=== PATIENT | male | born 1970 | race Caucasian/White ===

== ENCOUNTER 2024-06-26 05:12 | Emergency (ER) | payer OTHER, SELFPAY ==
[2024-06-26 05:14] VITALS: BP 147/92; PULSE 110; RESP 16; TEMP 36.6; O2SAT 96; BMI 53.1
--- NOTE | 2024-06-26 05:27 | CT_ITS ---
PROCEDURE INFORMATION: Exam: CT Abdomen And Pelvis With Contrast Exam date and time: 06/26/2024 5:57 AM Age: 53 years old Clinical indication: Pain; Other: Genital region; Additional info: Infection of gentials, R/O nsti TECHNIQUE: Imaging protocol: Computed tomography of the abdomen and pelvis with contrast. Radiation optimization: All CT scans at this facility use at least one of these dose optimization techniques: automated exposure control; mA and/or kV adjustment per patient size (includes targeted exams where dose is matched to clinical indication); or iterative reconstruction. Contrast material: ISOVUE; Contrast volume: 75 ml; Contrast route: IV; COMPARISON: No relevant prior studies available. FINDINGS: Lungs: Lung bases are clear as visualized. Heart: Base of heart is unremarkable as visualized. Liver: Normal. No mass. Gallbladder and biliary ducts: Normal. No calcified stones. No ductal dilation. Pancreas: Atrophy of the pancreas. Spleen: Normal. No splenomegaly. Adrenal glands: Normal. No mass. Kidneys and ureters: Mild stranding and inflammatory change adjacent the bilateral renal pelves and renal cortices. Stomach and bowel: Unremarkable. No obstruction. No mucosal thickening. Appendix: No evidence of appendicitis. Intraperitoneal space: Unremarkable. No free air. No significant fluid collection. Vasculature: Unremarkable. No abdominal aortic aneurysm. Lymph nodes: Bilateral prominent inguinal lymph nodes, likely reactive. Urinary bladder: Unremarkable as visualized. Reproductive: Simple attenuating left paratesticular fluid seen within the scrotal sac. There is scrotal wall thickening and inflammatory change about the buried penis. Inflammatory change and cutaneous thickening is seen in the prominent fat pannus adjacent the scrotal sac and penis. There is no indication of gas. Bones/joints: Unremarkable. No acute fracture. Soft tissues: See Reproductive finding. IMPRESSION: 1. Cellulitis of the abdominal anterior fat pannus adjacent the buried penis and scrotal sac. Inflammatory change/cellulitis appears to extend into the left scrotal soft tissues. No free air to suggest gas-forming organism at this time, early Ne's gangrene can not be entirely excluded. 2. Reactive left hydrocele is present given internal attenuation below that of 20 Hounsfield units, however an early hydrocele is not entirely excluded. Consider scrotal ultrasound for further assessment. 3. Reactive inguinal lymph nodes. 4. Possible inflammatory change of the kidneys, correlate with clinical signs and symptoms upper urinary tract infection.
[2024-06-26] MEDS: VANCOMYCIN CONSULT REQUEST 1 EACH NOTAPPLIC (05:30)
--- NOTE | 2024-06-26 05:31 | HMH.EDGENADL ---
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, Acidosis, lactic, Hyperglycemia, Hyponatremia Stand Alone Forms Stand Alone Forms: Transfer Record - ED Print Language Print Language: Yoruba Discharge ED Provider: Anibal Zhou General Adult HPI General Chief complaint: Urogenital-Male Stated complaint: swelling pubic area Time Seen by Provider: 06/26/24 05:16 History of Present Illness HPI narrative: 53-year-old male known type II diabetic on metformin who reports he has no other chronic medical conditions but also is not much one for going to the doctor so has not seen a doctor in a long time presents to the ER for complaints of genital swelling. Patient reports 3 days ago he noticed what he thought was a small ingrown hair and tried to bust it . 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 He states he thinks it continued being irritated with his work and pants rubbing on it so it continued to get worse. He reports calling his doctor to try and get an appointment and they were going to be able to get him in on Friday but he states he cannot wait that long. He has discomfort that he describes as being above the penis. Family at bedside is concerned that it is more than just an ingrown hair. Patient denies fevers, chills, chest pain, difficulty breathing, headache, dizziness, abdominal pain, nausea, vomiting, diarrhea, constipation. He states he is able to urinate and have bowel movements normally despite the swelling. He denies any other known injury or trauma to the area. Patient states his only daily medication is metformin, no known drug allergies. Related Data Allergies Allergy/AdvReac Type Severity Reaction Status Date / Time No Known Allergies Allergy Verified 06/26/24 05:35 [facility] Disclaimer: The information contained in this section may have been updated after the patient was seen, as this information can be updated by other users. Social History Smoking Status: Current every day smoker alcohol intake: never current occupational status: employed Travel in the last 8 weeks: None ROS Obtained: Yes Systems reviewed as appropriate & no additional complaints except as documented per HPI Physical Exam General General appearance: alert, in no apparent distress and obese Head Head exam: atraumatic and normocephalic Eye Eye exam: Present PERRL and EOMI ENT ENT exam: Present mucous membranes moist Neck Neck exam: Present normal inspection and full ROM Chest Chest inspection: Present symmetric chest wall rise Respiratory Respiratory exam: Present normal lung sounds bilaterally; Absent respiratory distress, wheezes or stridor Cardiovascular Cardiovascular exam: Present normal rhythm and tachycardia (Mild tachycardia on arrival) Abdominal Exam Abdominal exam: Present soft; Absent distention or tenderness exam: Present scrotal swelling, normal testicular lie and other (Unable to visualize the penis, it is obscured by subcutaneous fat, appears involuted, urine is leaking from the hole where the penis is, yeast present in this area); Absent normal inspection Expanded Exam exam: Present lesions (2 small areas of open wound on the area of the left mons pubis, no purulence but malodorous), induration (Erythema and induration involves the entire mons pubis which is significantly swollen, also involves the scrotum), erythema and other (Admitted the induration and erythema, on the left mons pubis where patient has 2 areas of small open wound there is a more well-defined mass that feels as though it extends into the deep subcutaneous tissues, no obvious fluctuance; no crepitus) Extremities Exam Extremities exam: Present full ROM and normal capillary refill; Absent edema or calf tenderness Neurological Exam Neurological exam: Present alert and oriented X3; Absent motor sensory deficit Psychiatric Psychiatric exam: Present normal affect and normal mood Skin Skin exam: Present warm and dry Medical Decision Making Medical Records Screening: Per USPSTF and CDC recommendations, given the prevalence of disease in our region, it is our hospital?s policy to screen for HIV and viral Hepatitis for all patients aged 18 and over and those with ongoing risk factors. Kasi Inquiry Pt receiving controlled substance: No Vital Signs: 06/26/24 05:14 06/26/24 05:35 Temperature 97.9 F Temperature Source Oral Pulse Rate 98 H Pulse Rate [Left] 110 H Respiratory Rate 16 14 Blood Pressure 142/75 H Blood Pressure [Right Arm] 147/92 H Blood Pressure Mean [Right Arm] 110 Blood Pressure Position Supine 02 Sat by Pulse Oximetry 96 97 Oxygen Delivery Method Room Air Room Air Lab Data Lab Results 06/26/24 05:26: WBC 25.4 H*, RBC 5.24, Hgb 14.8, Hct 43.8, MCV 83.6, MCH 28.2, MCHC 33.8, RDW 12.9, Plt Count 400, MPV 9.4, Neut % (Auto) 74.0, Lymph % (Auto) 12.3, [place] % (Auto) 11.5 H, Eos % (Auto) 0.2, Baso % (Auto) 0.5, Neut # (Auto) 18.8 H, Lymph # (Auto) 3.1, [place] # (Auto) 2.9 H, Eos # (Auto) 0.1, Baso # (Auto) 0.1, Total Counted 100, Neutrophils % (Manual) 79 H, Lymphocytes % (Manual) 17, Monocytes % (Manual) 3, Eosinophils % (Manual) 1, Platelet Estimate Normal, RBC Morphology Normal, PT 12.4, INR 1.12 H, Sodium 125 L, Potassium 3.8, Chloride 91 L, Carbon Dioxide 20 L, Anion Gap 17.8 H, BUN 11, Creatinine 0.80, Estimated Creat Clear 106, Estimated GFR 102, Est GFR ( Amer) 123, Glucose 466 H*, Lactate 2.1, Calcium 9.1, Total Bilirubin 1.1, AST 33, ALT 43, Alkaline Phosphatase 169 H, C-Reactive Protein 138.5 H, Total Protein 8.3 H, Albumin 4.2, Globulin 4.1 H, Albumin/Globulin Ratio 1.0 L, Acetone Level None detected 06/26/24 05:27: VBG pH 7.40, VBG pCO2 33.6 L, VBG pO2 69.8 H, VBG HCO3 20.1 L, VBG Total CO2 21.1 L, VBG O2 Saturation 94.6 H, VBG Base Excess -4.8 L, VBG Lactic Acid 2.4 H 06/26/24 05:26 06/26/24 05:26 Orders (Tests/Meds): ED MEDICATIONS Generic Name Dose Route Start Last Admin Trade Name Freq PRN Reason Stop Dose Admin Vancomycin HCl 2,500 mg/ 500 mls @ 250 mls/hr 06/26/24 05:45 Sodium Chloride IV 06/26/24 07:44 ONCE ONE Miscellaneous 1 each 06/26/24 05:30 06/26/24 05:30 Vancomycin Consult Request NOTAPPLIC 07/26/24 05:29 1 each [facility]SULT [facility] Administration Discontinued Medications Generic Name Dose Route Start Last Admin Trade Name Adam PRN Reason Stop Dose Admin Acetaminophen 1,000 mg 06/26/24 05:57 06/26/24 06:27 Acetaminophen 1,000mg/100ml Vial IV 06/26/24 05:58 1,000 mg ONCE ONE Administration Piperacillin Sod/Tazobactam 100 mls @ 200 mls/hr 06/26/24 05:23 06/26/24 05:45 Sod 4.5 gm/ Sodium Chloride IV 06/26/24 05:52 200 mls/hr ONCE ONE Administration Clindamycin Phosphate 900 mg in 50 mls @ 100 mls/hr 06/26/24 05:25 06/26/24 06:05 Clindamycin 900mg/50ml D5w Premix IV 06/26/24 05:54 100 mls/hr ONCE ONE Administration Lactated Ringer's 1,000 mls @ 999 mls/hr 06/26/24 05:27 06/26/24 05:38 Lactated Ringer's 1000 Ml Bag IV 06/26/24 06:27 999 mls/hr .Q1H1M ONE Administration Iopamidol 75 ml 06/26/24 05:57 06/26/24 06:00 Iopamidol-370 (76%);100ml Bottle IV 06/26/24 05:58 75 ml ONCE ONE Administration Sodium Chloride 10 ml 06/26/24 05:57 06/26/24 06:00 Sodium Chloride 0.9% 10ml Syr (Rad Only) IV 06/26/24 05:58 10 ml ONCE ONE Administration ORDERS Category Date Time Status CT abdomen pelvis w con Stat Cat Scan 06/26/24 05:27 Completed Acetone, Serum (Rapid) Stat Lab 06/26/24 05:26 Completed CBC w/Auto Diff [Complete Blood Count Auto Diff] Stat Lab 06/26/24 05:26 Completed CMP [Comprehensive Metabolic Panel] Stat Lab 06/26/24 05:26 Completed CRP [C-Reactive Protein] Stat Lab 06/26/24 05:26 Completed HIV Combo Routine Lab 06/26/24 05:26 Received Hepatitis C Ab Qual. W/ RFX Routine Lab 06/26/24 05:26 Received Lactic Acid Stat Lab 06/26/24 05:26 Completed Osmolality Stat Lab 06/26/24 05:26 Received PT INR [Prothrombin Time INR] Stat Lab 06/26/24 05:26 Completed Blood Culture Stat Micro 06/26/24 05:40 Received VBG [Venous Blood Gas] Stat RT 06/26/24 05:27 Completed Tissue Perfus/Sepsis Re-Eval Sepsis Re-Evaluation Performed: Yes Date Performed: 06/26/24 Time Performed: 06:42 Medical Decision Narrative: In summary, this 53-year-old male with known type 2 diabetes likely not at goal therapy given his avoidance of the medical system presents to the emergency department today with swelling, pain, wound in the pubic area. On initial evaluation patient is mildly tachycardic but otherwise hemodynamically stable, afebrile, ambulated independently into the ER, exam is notable for significant swelling, induration, erythema, heat, involving the mons pubis, tissue surrounding the penis, and scrotum. There are 2 very small wounds over the mons pubis and deeper palpable swelling in this area as well, no obvious crepitus. Differential diagnosis includes but is not limited to abscess, cellulitis, necrotizing soft tissue infection, Ne's gangrene, electrolyte abnormality, hyperglycemia, lactic acidosis. While I am reassured that patient does not have severe pain, I do have high concern for possible NSTI given the appearance and rapid progression of this area as well as his likely poorly controlled diabetes. He was started on broad-spectrum antibiotics including vancomycin, Zosyn, and clindamycin empirically. He is also receiving small volume fluid bolus to help with tachycardia. I would not be surprised if the patient has kidney dysfunction or unknown cardiac problems due to his avoidance of the medical system so I do not want to fluid overload him especially since he has good blood pressure at this time. Ruling out the most morbid conditions drove my assessment, serum labs and CT imaging have been ordered. Patient is also receiving IV acetaminophen. Labs personally reviewed demonstrate significant leukocytosis WBC 25.4, no anemia, platelets normal, PT/INR nonactionable, VBG with normal pH, lactic on VBG is elevated at 2.4, lactic on chemistry normal at 2.1. Patient is receiving IV fluids. Patient has hyponatremia and hypochloremia in the setting of hyperglycemia. Sodium corrected for his hyperglycemia is 134. Given his electrolyte derangements and hyperglycemia, increased concern for possible DKA/HHS. He does not meet criteria for HHS, I added acetone and osmolality to patient's workup for further evaluation though he is known to not be in DKA given his pH is normal. Acetone negative. CT imaging personally interpreted demonstrate large area of cellulitis consistent with the areas of erythema and induration on exam, no obvious fluid collection, I do not appreciate air on CTA. I reached out to ad radiologist to have them escalate the study for priority read given concern for NSTI. Radiology read also does not appreciate free air but report states they cannot rule out Ne's, patient also has likely reactive hydrocele, they also call possible evidence of urinary infection, urine sample has not been collected at this time since patient does not have a way for us to collect a clean-catch due to his buried penis, and cannot visualize the penis for a cath sample. He is already being adequately covered with the antibiotics that have been administered for urinary tract infection. With the results of the CT, I immediately reached out to [facility]. We also called for weather check for a possible helicopter transfer. I spoke with Dr. Grimes in the transfer center and after reviewing patient's labs and presentation, she graciously accepted the patient for ED to ED transfer to [facility] ER for concern of early Ne's gangrene. Air methods returned our call and had to decline the patient secondary to his weight and to the weather. Patient will go via ALS ambulance with continued IV fluids and antibiotics. Patient transferred in serious but currently stable condition. Critical Care Critical Care Time Critical Care Time: Yes Attestation: On 06/26/24, the high probability of a clinically significant, sudden or life threatening deterioration of the following system(s) (hemodynamic) required my full and direct attention, intervention and personal management. The time I documented below is in addition to time spent performing reported procedures but includes the following listed in this critical care notation. Total Time Total Critical Care Time: 35
[2024-06-26 05:35] VITALS: BP 142/75; PULSE 98; RESP 14; O2SAT 97
[2024-06-26 05:36] LABS: VBG Base Excess -4.8 mmol/L (-2.4-2.3); VBG HCO3 20.1 mmol/L (23-30); VBG Oxygen Saturation 94.6 % (50-70); VBG PCO2 33.6 mmol/L (35-51); VBG PO2 69.8 mmol/L (28-40); VBG Total CO2 21.1 mmol/L (23-27)
[2024-06-26 05:37] LABS: Lactate Venous 2.4 mmol/L (0.4-2.0)
[2024-06-26] MEDS: LACTATED RINGERS 1000ML 1,000 ML 999 ML IV (05:38)
--- NOTE | 2024-06-26 05:40 | PC.NURSE ---
phlebotomy at the bedside to obtain second set of cultures. dye penetrant testing technician as well to explain CT procedure
[2024-06-26 05:43] LABS: Basophils # 0.1 K/mm3 (0-0.2); Basophils % 0.5 % (0.1-2.0); Eosinophils # 0.1 K/mm3 (0.0-0.4); Eosinophils % 0.2 % (0.1-12.0); Hematocrit 43.8 % (42.0-52.0); Hemoglobin 14.8 g/dL (14.1-18.0); Lymphocytes # 3.1 K/mm3 (0.7-4.5); Lymphocytes % 12.3 % (10-50); Mean Corpuscular HGB Conc 33.8 g/dL (31.8-35.4); Mean Corpuscular Hemoglobin 28.2 pg (27.0-31.2); Mean Corpuscular Volume 83.6 fl (80-94); Mean Platelet Volume 9.4 fl (7.4-10.4); Monocytes # 2.9 K/mm3 (0.1-1.0); Monocytes % 11.5 % (1.7-9.3); Neutrophils # 18.8 K/mm3 (1.8-7.8); Platelet Count 400 K/mm3 (142-424); Red Blood Count 5.24 M/mm3 (4.60-6.20); Red Cell Distribution Width 12.9 % (11.5-17.5); White Blood Count 25.4 K/mm3 (4.8-10.8)
[2024-06-26 05:44] LABS: Albumin Level 4.2 g/dl (3.5-5.0); Chloride 91 mmol/L (98-107); Potassium 3.8 mmoL/L (3.5-5.1); Sodium 125 mmol/L (136-145)
[2024-06-26] MEDS: PIPERACILLIN/TAZO 4.5 GM in 0.9 % SODIUM CHLORIDE 100 ML IV (05:45)
[2024-06-26 05:47] LABS: Alanine Aminotransferase 43 U/L (12-78); Alkaline Phosphatase 169 U/L (38-126); Anion Gap 17.8 mEq/L (5-15); Aspartate Amino Transferase 33 U/L (17-59); Bilirubin,Total 1.1 mg/dl (0.2-1.3); Blood Urea Nitrogen 11 mg/dl (9-20); Calcium 9.1 mg/dl (8.4-10.2); Carbon Dioxide 20 mmol/L (22.0-30.0); Creatinine Clearance Estimated 106 mL/min (50-200); Estimated Glomerular Filt Rate 102 ml/min (>60); GFR (African American) 123 ML/MIN (>60); Globulin 4.1 g/dL (1.3-3.2); MANUAL DIFFERENTIAL MANUAL DIFFERENTIAL (MANUAL DIFF); Total Protein,Serum 8.3 g/dl (6.3-8.2)
[2024-06-26 05:48] LABS: Glucose 466 mg/dl (74-100); Lactic Acid 2.1 mmol/L (0.7-2.1)
[2024-06-26 05:49] LABS: INR 1.12 (0.9-1.1); Prothrombin Time 12.4 seconds (10.1-12.5)
--- NOTE | 2024-06-26 05:52 | PC.NURSE ---
pt taken to ct scan at this time
[2024-06-26] MEDS: IOPAMIDOL-370 (76%);100ML BOTTLE 75 ML IV (06:00)
[2024-06-26] MEDS: SODIUM CHLORIDE 0.9% 10ML SYR (RAD ONLY) 10 ML IV (06:00)
[2024-06-26 06:02] LABS: Acetone, Serum (Rapid) None Detected (None Detect)
[2024-06-26] MEDS: CLINDAMYCIN PHOSPHATE/D5W 900 MG/50 ML PIGGYBACK 100 MG IV (06:05)
--- NOTE | 2024-06-26 06:12 | PC.NURSE ---
provider at the bedside updating pt on POC
[2024-06-26 06:13] LABS: C-Reactive Protein 138.5 mg/L (0-4)
[2024-06-26 06:19] LABS: Eosinophils % 1 % (0-3); Lymphocytes % 17 % (10-50); Monocytes % 3 % (2-9); Neutrophils % 79 % (42-76); Platelet Estimate Normal; RBC Morphology Normal; Total Cells Counted 100
[2024-06-26] MEDS: ACETAMINOPHEN 1,000MG/100ML VIAL 1000 MG IV (06:27)
--- NOTE | 2024-06-26 06:30 | PC.NURSE ---
Called [facility] for Transfer. They will call back.
[2024-06-26 06:33] LABS: HIV Combo NEGATIVE (Negative)
--- NOTE | 2024-06-26 06:34 | PC.NURSE ---
[facility] Feliciano called for weather check and weight requirements per Dr. Zhou's orders.
[2024-06-26 06:41] LABS: Hepatitis C Ab Qual. W/ RFX NEGATIVE (Negative)
[2024-06-26] MEDS: VANCOMYCIN HCL 2,500 MG in 0.9 % SODIUM CHLORIDE 500 ML 250 MG IV (06:51)
--- NOTE | 2024-06-26 07:17 | PC.NURSE ---
EMS updated that truck is unavailable at this time for transfer due to pt care in the community. EMS will update when they are available for transfer per Amado STAFFORD
[2024-06-26 07:30] VITALS: BP 115/76; PULSE 95; O2SAT 96
[2024-06-26 08:00] VITALS: BP 130/82; PULSE 100; O2SAT 94
--- NOTE | 2024-06-26 08:15 | PC.NURSE ---
ems called and states they will be this way shortly
[2024-06-26 08:30] VITALS: BP 128/77; PULSE 103; O2SAT 97
--- NOTE | 2024-06-26 08:50 | PC.NURSE ---
spoke with pts mother to inform her about EMS transporting pt to
[2024-06-26 09:05] VITALS: BP 128/77; PULSE 103; RESP 16; TEMP 36.6; O2SAT 97
[2024-06-26 09:37] LABS: Reflex Lactic Add Lactic Reflex
== END 2024-06-26 09:06 | disposition short-term general hospital (02) ==
PROVIDERS: Emergency Provider Emergency Medicine
DX: N49.3 Fournier gangrene (principal); R73.9 Hyperglycemia, unspecified; E87.1 Hypo-osmolality and hyponatremia; E87.20 Acidosis, unspecified; N49.9 Inflammatory disorder of unspecified male genital organ; N50.89 Other specified disorders of the male genital organs
CPT/HCPCS: 74177; 80053; 82009; 82803; 83605; 83930; 85007; 85025; 85027; 85610; 86140; 86803; 87040; 87389; 96361; 96365; 96366; 96367; 96368; 96374; 99291; J0131; J0736; J2543; J3370; J7120; Q9967